=== PATIENT | female | born 1965 | race African-American/Black ===

== ENCOUNTER 2019-03-05 23:51 | Emergency (ER) | payer OTHER ==
[2019-03-06] MEDS: FAMOTIDINE 20 MG INJ IV (00:19)
[2019-03-06] MEDS: DIPHENHYDRAMINE 50 MG INJ IV (00:19)
[2019-03-06] MEDS: METHYLPREDNISOLONE 125 MG INJ IV (00:19)
[2019-03-06] MEDS: ALBUTEROL 0.083% (NEB) 2.5 MG/3 ML AMP INH (00:28)
[2019-03-06] MEDS: IPRATROPIUM (NEB) 0.5 MG/2.5 ML AMP INH (00:29)
[2019-03-06 00:55] LABS: ADD MAN DIFF? NO
[2019-03-06 00:57] LABS: WHITE BLOOD COUNT 5.8 10^3/ul (4.8-10.8)
[2019-03-06 00:57] LABS: BASOPHILS % 0.5 % (0.0-2.0); EOSINOPHILS # 0.2 10^3/ul (0.0-0.5); EOSINOPHILS % 3.5 % (0.0-7.0); HEMATOCRIT 38.8 % (37.0-47.0); LYMPHOCYTES # 3.3 10^3/ul (0.8-2.9); LYMPHOCYTES % 57.9 % (15.0-51.0); MEAN CORPUSCULAR HEMOGLOBIN 27.8 pg (29.0-33.0); MEAN CORPUSCULAR HGB CONC 30.9 g/dl (32.0-37.0); MEAN CORPUSCULAR VOLUME 89.8 fl (82.0-101.0); MEAN PLATELET VOLUME 10.4 fl (7.4-10.4); MONOCYTE # 0.5 10^3/ul (0.3-0.9); NEUTROPHIL # 1.7 10^3/ul (1.6-7.5); NEUTROPHILS % 29.9 % (39.0-77.0); PLATELET COUNT 228 10^3/UL (140-415); RED BLOOD COUNT 4.32 10^6/ul (4.20-5.40)
[2019-03-06 01:14] LABS: ALANINE AMINOTRANSFERASE 34 IU/L (13-69); ALBUMIN 4.3 g/dl (3.3-4.9); ALBUMIN/GLOBULIN RATIO 1.43; ALKALINE PHOSPHATASE 55 IU/L (42-121); ANION GAP 6 (5-13); ASPARTATE AMINO TRANSFERASE 27 IU/L (15-46); BILIRUBIN,INDIRECT 0.2 mg/dl (0-1.1); BILIRUBIN,TOTAL 0.2 mg/dl (0.2-1.3); BLOOD UREA NITROGEN 24 mg/dl (7-20); CALCIUM 10.2 mg/dl (8.4-10.2); CARBON DIOXIDE 32 mmol/L (21-31); CHLORIDE 105 mmol/L (97-110); CREATININE 1.16 mg/dl (0.44-1.00); Estimated GFR 49 mL/min (>60); GLUCOSE 103 mg/dl (70-220); POTASSIUM 4.3 mmol/L (3.5-5.1); SODIUM 143 mmol/L (135-144); TOTAL PROTEIN 7.3 g/dl (6.1-8.1)
[2019-03-06 01:22] LABS: B-TYPE NATRIURETIC PEPTIDE 57 PG/ML (0-125)
[2019-03-06 01:26] LABS: TROPONIN-I < 0.012 ng/ml (0.000-0.120)
== END 2019-03-06 04:56 | disposition home or self-care (01) ==
LOC: E/R 23:51
DX: R07.0 Pain in throat (principal); I10 Essential (primary) hypertension
CPT/HCPCS: 36415; 71045; 80053; 83880; 84484; 85025; 93005; 94664; 96374; 96375; 99285-25